=== PATIENT | female | born 1995 | race American Indian/Alaskan Native ===

== ENCOUNTER 2017-03-14 21:16 | Emergency (ER) | payer OTHER, MEDICAID ==
[2017-03-14 23:20] VITALS: BP 155/101
[2017-03-15] MEDS ORDERED: MOTRIN PO ONE (01:04)
[2017-03-15] MEDS ORDERED: TYLENOL PO ONE (01:04)
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
== END 2017-03-15 01:22 | disposition home or self-care (01) ==
LOC: ED 21:16
DX: R51 Headache (principal); M54.5 Low back pain; V43.52XA Car driver injured in collision with other type car in traffic accident, initial encounter; Y93.89 Activity, other specified; Y92.89 Other specified places as the place of occurrence of the external cause; Y99.8 Other external cause status
CPT/HCPCS: 99282